=== PATIENT | female | born 1995 | race Caucasian/White ===

== ENCOUNTER 2018-11-30 00:21 | Emergency (ER) | payer SELFPAY ==
[~2018-11-30] VITALS: Ht 165.1 cm; Wt 70.9 kg
[~2018-11-30 00:21] MED LIST: AMBILIFY; CIPROFLOXACN500 MG PO; FAMVIR500 MG PO; FLONASE SPRAY50 MCG; METRONIDAZOL500 MG PO; MONISTAT1 VA; NO HOME MEDS; ULTRAM50 M1 PO; ZOFRAN ODT4 MG PO; ZOLOFT50 MG
[2018-11-30 01:17] LABS: IMMATURE GRANULOCYTES 0.5 % (0.0-5.0); MEAN CORPUSCULAR HGB 31.4 pG CALC (26.0-32.0); MEAN CORPUSCULAR HGB CONC 33.7 g/L CALC (32.0-36.0); NEUT# 9.91 thou/uL (2.00-7.15); RED BLOOD COUNT 4.49 mill/uL (4.20-5.60); RED CELL DISTRI WIDTH 13.4 % (11.5-15.5)
[2018-11-30 01:19] LABS: HEMATOCRIT 41.9 % (37.0-47.0); HEMOGLOBIN 14.1 g/dl (12.0-16.0); MEAN CELL VOLUME 93.3 fL CALC (80.0-100.0)
[2018-11-30 01:40] LABS: ALBUMIN 4.4 g/dL (3.2-5.0); ALKALINE PHOSPHATASE 95 u/l (38-126); BUN 9 mg/dL (7-17); BUN/CREATININE RATIO 13 (12-20 (CALC)); CHLORIDE 110 mmol/l (95-108); CREATININE 0.6 mg/dL (0.5-1.0); GFR > 60 ML/MIN (>=60 (CALC)); GFR FOR AFR.AMER. > 60 ML/MIN (>=60 (CALC)); POTASSIUM 3.7 mmol/l (3.5-5.1); SGOT/AST 29 u/l (14-36); SODIUM 142 mmol/l (137-146); TOTAL PROTEIN 7.6 g/dL (6.3-8.2)
[2018-11-30 01:41] LABS: ANION GAP 17 (6-22 (CALC)); BILIRUBIN, TOTAL 0.3 mg/dL (0.0-1.4); CARBON DIOXIDE 19 mmol/l (22-30)
[2018-11-30 01:58] LABS: URINE BILIRUBIN - DIPSTICK NEGATIVE (NEGATIVE); URINE BLOOD DIPSTICK MODERATE (NEGATIVE); URINE COLOR YELLOW; URINE GLUCOSE - DIPSTICK NEGATIVE (NEGATIVE); URINE KETONE NEGATIVE (NEGATIVE); URINE LEUK ESTERASE NEGATIVE (NEGATIVE); URINE NITRITE - DIPSTICK NEGATIVE (Negative); URINE PH 5.5 (4.5-8.0); URINE PROTEIN - DIPSTICK NEGATIVE (NEG-TRACE); URINE UROBILINOGEN - DIPSTICK 0.2 E.U./dL (0.2)
[2018-11-30 02:01] LABS: BARBITURATES NEGATIVE (NEGATIVE); COCAINE NEGATIVE (NEGATIVE); METHADONE NEGATIVE (NEGATIVE); OXCYCODONE NEGATIVE (NEGATIVE); TETRAHYDROCANNABIONOL NEGATIVE (NEGATIVE); TRICYLIC ANTIDEPRESSANTS NEGATIVE (NEGATIVE)
[2018-11-30 02:12] LABS: URINE SQUAMOUS EPITHELIAL CELL FEW EPI/hpf (0-FEW)
[2018-11-30 03:05] VITALS: BP 117/71
== END 2018-11-30 03:05 | DRG 605 ==
LOC: ED 00:21
PROVIDERS: Emergency Medicine
PROC: 0HQ4XZZ Repair Neck Skin, External Approach (ICD-10-PCS; principal; 2018-11-30)
DX: S11.91XA Laceration without foreign body of unspecified part of neck, initial encounter (principal); F19.10 Other psychoactive substance abuse, uncomplicated; F32.9 Major depressive disorder, single episode, unspecified; F17.210 Nicotine dependence, cigarettes, uncomplicated; Z91.5 Personal history of self-harm; X78.0XXA Intentional self-harm by sharp glass, initial encounter

== ENCOUNTER 2019-10-03 03:37 | Emergency (ER) | payer SELFPAY ==
[2019-10-03] MEDS ORDERED: CLARITIN10 M1 PO (04:41)
[2019-10-03] MEDS ORDERED: AMOXICILLIN500 MG PO (04:41)
[2019-10-03 04:42] VITALS: BP 114/57
== END 2019-10-03 04:42 | disposition home or self-care (01) | DRG 153 ==
LOC: ED 03:37
DX: J02.9 Acute pharyngitis, unspecified (principal); S60.416A Abrasion of right little finger, initial encounter; S70.311A Abrasion, right thigh, initial encounter; F17.210 Nicotine dependence, cigarettes, uncomplicated; W25.XXXA Contact with sharp glass, initial encounter; Y93.89 Activity, other specified

== ENCOUNTER 2020-06-28 15:03 | Emergency (ER) | payer MEDICAID ==
[~2020-06-28] VITALS: Ht 165.1 cm; Wt 95.0 kg
[~2020-06-28 15:03] MED LIST changes: +AMOXICILLIN500 MG PO; +CLARITIN10 M1 PO
[2020-06-28 16:20] LABS: HEMATOCRIT 36.8 % (37.0-47.0); IMMATURE GRANULOCYTES 0.2 % (0.0-5.0); MEAN CELL VOLUME 95.1 fL CALC (80.0-100.0); MEAN CORPUSCULAR HGB CONC 32.6 g/dL CAL (32.0-36.0); NEUT# 5.64 thou/uL (2.00-7.15); RED BLOOD COUNT 3.87 mill/uL (4.20-5.60); RED CELL DISTRI WIDTH 13.2 % (11.5-15.5)
[2020-06-28 16:39] LABS: ALBUMIN 4.2 g/dL (3.2-5.0); ALKALINE PHOSPHATASE 87 u/l (38-126); ANION GAP 13 (6-22 (CALC)); BILIRUBIN, TOTAL 0.4 mg/dL (0.0-1.4); BUN 9 mg/dL (7-17); BUN/CREATININE RATIO 13 (12-20 (CALC)); CARBON DIOXIDE 25 mmol/l (22-30); CHLORIDE 103 mmol/l (95-108); CREATININE 0.7 mg/dL (0.5-1.0); GFR > 60 ML/MIN (>=60 (CALC)); GFR FOR AFR.AMER. > 60 ML/MIN (>=60 (CALC)); POTASSIUM 3.7 mmol/l (3.5-5.1); SGOT/AST 24 u/l (14-36); SODIUM 137 mmol/l (137-146); TOTAL PROTEIN 7.7 g/dL (6.3-8.2)
[2020-06-28 17:52] LABS: URINE BILIRUBIN - DIPSTICK NEGATIVE (NEGATIVE); URINE BLOOD DIPSTICK LARGE (NEGATIVE); URINE COLOR YELLOW; URINE GLUCOSE - DIPSTICK NEGATIVE (NEGATIVE); URINE KETONE NEGATIVE (NEGATIVE); URINE LEUK ESTERASE NEGATIVE (NEGATIVE); URINE NITRITE - DIPSTICK NEGATIVE (Negative); URINE PH 7.5 (4.5-8.0); URINE PROTEIN - DIPSTICK NEGATIVE (NEG-TRACE); URINE UROBILINOGEN - DIPSTICK 0.2 E.U./dL (0.2)
[2020-06-28 18:07] LABS: URINE SQUAMOUS EPITHELIAL CELL FEW EPI/hpf (0-FEW)
[2020-06-28 18:58] VITALS: BP 143/93
== END 2020-06-28 19:00 | disposition home or self-care (01) ==
LOC: ED 15:03
DX: N93.8 Other specified abnormal uterine and vaginal bleeding (principal); F17.200 Nicotine dependence, unspecified, uncomplicated

== ENCOUNTER 2020-12-18 19:00 | Emergency (ER) | payer MEDICAID ==
[2020-12-18 22:35] VITALS: BP 131/65
== END 2020-12-18 22:36 | disposition home or self-care (01) ==
LOC: ED 19:00
DX: J02.9 Acute pharyngitis, unspecified (principal); F17.200 Nicotine dependence, unspecified, uncomplicated; Z20.822 Contact with and (suspected) exposure to COVID-19

== ENCOUNTER 2022-03-28 04:46 | Emergency (ER) | payer MEDICAID ==
[~2022-03-28] VITALS: Ht 167.6 cm; Wt 80.9 kg
[2022-03-28 04:57] VITALS: BP 128/74
[2022-03-28 05:00] VITALS: BP 126/88
[2022-03-28 05:15] VITALS: BP 123/84
[2022-03-28 05:58] LABS: HEMATOCRIT 41.8 % (37.0-47.0); IMMATURE GRANULOCYTES 0.3 % (0.0-5.0); MEAN CELL VOLUME 96.5 fL CALC (80.0-100.0); MEAN CORPUSCULAR HGB 32.6 pG CALC (26.0-32.0); MEAN CORPUSCULAR HGB CONC 33.7 g/dL CAL (32.0-36.0); NEUT# 4.8 thou/uL (2.00-7.15); RED BLOOD COUNT 4.33 mill/uL (4.20-5.60)
[2022-03-28 05:58] LABS: URINE BLOOD DIPSTICK LARGE (NEGATIVE); URINE COLOR YELLOW; URINE GLUCOSE - DIPSTICK NEGATIVE (NEGATIVE); URINE KETONE 15 mg/dL (NEGATIVE); URINE LEUK ESTERASE NEGATIVE (NEGATIVE); URINE PH 5.5 (4.5-8.0); URINE PROTEIN - DIPSTICK TRACE mg/dL (NEG-TRACE); URINE SPECIFIC GRAVITY >=1.030
[2022-03-28 06:01] LABS: URINE BILIRUBIN - DIPSTICK SMALL (NEGATIVE); URINE NITRITE - DIPSTICK POSITIVE (Negative)
[2022-03-28 06:01] LABS: HEMOGLOBIN 14.1 g/dl (12.0-16.0)
[2022-03-28 06:06] LABS: ALBUMIN 4.2 g/dL (3.2-5.0); ALKALINE PHOSPHATASE 123 u/l (38-126); ANION GAP 13 (6-22 (CALC)); BILIRUBIN, TOTAL 0.5 mg/dL (0.0-1.4); BUN 9 mg/dL (7-17); BUN/CREATININE RATIO 12 (12-20 (CALC)); CARBON DIOXIDE 23 mmol/l (22-30); CHLORIDE 110 mmol/l (95-108); CREATININE 0.8 mg/dL (0.5-1.0); GFR FOR AFR.AMER. > 60 ML/MIN (>=60 (CALC)); GFR OTHER RACES > 60 ML/MIN (>=60 (CALC)); POTASSIUM 3.6 mmol/l (3.5-5.1); SGOT/AST 25 u/l (14-36); SODIUM 142 mmol/l (137-146); TOTAL PROTEIN 7.9 g/dL (6.3-8.2)
[2022-03-28 06:09] LABS: URINE BACTERIA MANY hpf; URINE MUCUS FEW hpf (NONE-FEW); URINE SQUAMOUS EPITHELIAL CELL MANY EPI/hpf (0-FEW)
[2022-03-28 07:17] VITALS: BP 123/84
== END 2022-03-28 07:45 | disposition home or self-care (01) ==
LOC: ED 04:46
PROVIDERS: Family Medicine
DX: R51.9 Headache, unspecified (principal); F17.200 Nicotine dependence, unspecified, uncomplicated; R82.71 Bacteriuria

== ENCOUNTER 2022-04-16 01:07 | Emergency (ER) | payer MEDICAID ==
[~2022-04-16] VITALS: Ht 167.6 cm; Wt 70.0 kg
[2022-04-16 02:01] LABS: HEMATOCRIT 38.6 % (37.0-47.0); HEMOGLOBIN 13.1 g/dl (12.0-16.0); IMMATURE GRANULOCYTES 0.3 % (0.0-5.0); MEAN CELL VOLUME 96.5 fL CALC (80.0-100.0); MEAN CORPUSCULAR HGB 32.8 pG CALC (26.0-32.0); MEAN CORPUSCULAR HGB CONC 33.9 g/dL CAL (32.0-36.0); NEUT# 4.61 thou/uL (2.00-7.15); RED CELL DISTRI WIDTH 12.7 % (11.5-15.5)
[2022-04-16 02:19] LABS: SGOT/AST 30 u/l (14-36)
[2022-04-16 02:21] LABS: ALBUMIN 4.1 g/dL (3.2-5.0); ALKALINE PHOSPHATASE 108 u/l (38-126); AMYLASE 60 u/l (30-110); ANION GAP 12 (6-22 (CALC)); BILIRUBIN, TOTAL 0.4 mg/dL (0.0-1.4); BUN 12 mg/dL (7-17); BUN/CREATININE RATIO 21 (12-20 (CALC)); CARBON DIOXIDE 22 mmol/l (22-30); CHLORIDE 109 mmol/l (95-108); CREATININE 0.6 mg/dL (0.5-1.0); GFR FOR AFR.AMER. > 60 ML/MIN (>=60 (CALC)); GFR OTHER RACES > 60 ML/MIN (>=60 (CALC)); LIPASE 42 u/l (23-300); POTASSIUM 3.4 mmol/l (3.5-5.1); SODIUM 140 mmol/l (137-146); TOTAL PROTEIN 7.4 g/dL (6.3-8.2)
[2022-04-16] MEDS ORDERED: NAPROXEN500 MG PO (02:40)
[2022-04-16 02:52] VITALS: BP 128/99
== END 2022-04-16 03:10 | disposition home or self-care (01) ==
LOC: ED 01:07
PROVIDERS: Emergency Medicine
DX: R07.89 Other chest pain (principal); F17.200 Nicotine dependence, unspecified, uncomplicated

== ENCOUNTER 2022-07-19 16:01 | Emergency (ER) | payer MEDICARE, MEDICAID ==
[~2022-07-19] VITALS: Ht 167.6 cm; Wt 76.2 kg
[~2022-07-19 16:01] MED LIST changes: +NAPROXEN500 MG PO
[2022-07-19 16:56] VITALS: BP 155/96
[2022-07-19 16:57] VITALS: BP 125/81
[2022-07-19] MEDS ORDERED: OMNICEF300 M1 PO (17:18)
[2022-07-19 17:26] VITALS: BP 125/81
== END 2022-07-19 17:30 | disposition home or self-care (01) ==
LOC: ED 16:01
DX: L03.032 Cellulitis of left toe (principal); F17.200 Nicotine dependence, unspecified, uncomplicated

== ENCOUNTER 2022-11-19 15:20 | Emergency (ER) | payer MEDICARE, MEDICAID ==
[~2022-11-19] VITALS: Ht 167.6 cm; Wt 68.0 kg
[~2022-11-19 15:20] MED LIST changes: +OMNICEF300 M1 PO
[2022-11-19 17:34] LABS: URINE BILIRUBIN - DIPSTICK SEE COMMNET (NEGATIVE); URINE BLOOD DIPSTICK LARGE (NEGATIVE); URINE COLOR ORANGE; URINE GLUCOSE - DIPSTICK NEGATIVE (NEGATIVE); URINE KETONE TRACE mg/dL (NEGATIVE); URINE LEUK ESTERASE NEGATIVE (NEGATIVE); URINE PROTEIN - DIPSTICK TRACE mg/dL (NEG-TRACE); URINE SPECIFIC GRAVITY 1.025
[2022-11-19 17:35] LABS: URINE NITRITE - DIPSTICK POSITIVE (Negative)
[2022-11-19 17:46] LABS: URINE BACTERIA MANY hpf; URINE SQUAMOUS EPITHELIAL CELL FEW EPI/hpf (0-FEW)
[2022-11-19] MEDS ORDERED: KEFLEX500 MG PO (17:58)
[2022-11-19 18:00] VITALS: BP 115/71
== END 2022-11-19 18:06 | disposition home or self-care (01) ==
LOC: ED 15:20
PROVIDERS: Nurse Practitioner
DX: N39.0 Urinary tract infection, site not specified (principal); B96.1 Klebsiella pneumoniae [K. pneumoniae] as the cause of diseases classified elsewhere; F17.290 Nicotine dependence, other tobacco product, uncomplicated

== ENCOUNTER 2023-01-06 11:55 | Emergency (ER) | payer MEDICARE, MEDICAID ==
[~2023-01-06] VITALS: Ht 167.6 cm; Wt 68.0 kg
[~2023-01-06 11:55] MED LIST changes: +KEFLEX500 MG PO
[2023-01-06] MEDS ORDERED: MAXITROL 0.1 %1 SUS OD (12:24)
[2023-01-06 12:39] VITALS: BP 132/50
== END 2023-01-06 12:40 | disposition home or self-care (01) ==
LOC: ED 11:55
DX: S05.01XA Injury of conjunctiva and corneal abrasion without foreign body, right eye, initial encounter (principal); F17.210 Nicotine dependence, cigarettes, uncomplicated; X58.XXXA Exposure to other specified factors, initial encounter

== ENCOUNTER 2023-06-05 13:27 | Emergency (ER) | payer MEDICARE, MEDICAID ==
[2023-06-05] VITALS (23 sets, daily range): BP systolic 100–136; BP diastolic 61–92
[~2023-06-05] VITALS: Ht 167.6 cm; Wt 65.0 kg
[~2023-06-05 13:27] MED LIST changes: +MAXITROL 0.1 %1 SUS OD
[2023-06-05 14:56] LABS: BASO% 0.4 % (0-3); HEMOGLOBIN 13.3 g/dl (12.0-16.0); LYMPH% 39.2 % (15-41); MEAN CORPUSCULAR HGB 31.6 pG CALC (26.0-32.0); MEAN CORPUSCULAR HGB CONC 33.3 g/dL CAL (32.0-36.0); MONO% 6.1 % (2-13); NEUT# 2.89 thou/uL (2.00-7.15); NEUT% 52.3 % (42-76); RED BLOOD COUNT 4.21 mill/uL (4.20-5.60); RED CELL DISTRI WIDTH 12.1 % (11.5-15.5)
[2023-06-05 15:11] LABS: ALKALINE PHOSPHATASE 72 u/l (38-126); ANION GAP 9 (6-22 (CALC)); BUN 11 mg/dL (7-17); BUN/CREATININE RATIO 18 (12-20 (CALC)); CARBON DIOXIDE 28 mmol/l (22-30); CHLORIDE 109 mmol/l (95-108); CREATININE 0.6 mg/dL (0.5-1.0); GFR FOR AFR.AMER. > 60 ML/MIN (>=60 (CALC)); GFR OTHER RACES > 60 ML/MIN (>=60 (CALC)); POTASSIUM 3.6 mmol/l (3.5-5.1); SGOT/AST 28 u/l (14-36); SODIUM 142 mmol/l (137-146); TOTAL PROTEIN 7.5 g/dL (6.3-8.2)
[2023-06-05 15:13] LABS: BILIRUBIN, TOTAL 0.4 mg/dL (0.02-1.3)
[2023-06-05] MEDS ORDERED: CENTRUM ADULTS1 TAB PO (18:32)
[2023-06-05] MEDS ORDERED: IBUPROFEN600 MG PO (18:32)
== END 2023-06-05 18:50 | disposition home or self-care (01) ==
LOC: ED 13:27
PROVIDERS: Emergency Medicine
DX: R07.89 Other chest pain (principal); F17.200 Nicotine dependence, unspecified, uncomplicated; Z20.822 Contact with and (suspected) exposure to COVID-19